=== PATIENT | male | born 1960 | race Hispanic/Latino ===

== ENCOUNTER 2019-01-23 10:30 | Outpatient (CLI) | payer OTHER ==
--- NOTE | 2019-01-23 13:48 | RAD ---
CHEST TWO VIEWS: HISTORY: Former smoker. FINDINGS: Heart size is normal. Lungs are clear. Old granuloma calcification. IMPRESSION: Mild biapical pleural thickening and old granuloma calcification, evidence for mild chronic change. No acute intrathoracic disease. Atherosclerosis of the aorta. POS: [facility]
== END 2019-01-23 10:31 | disposition home or self-care (01) ==
LOC: BICRAD 10:30
PROVIDERS: ATTEND Family Medicine
DX: Z87.891 Personal history of nicotine dependence (principal); I70.0 Atherosclerosis of aorta; D71 Functional disorders of polymorphonuclear neutrophils; J98.4 Other disorders of lung
CPT/HCPCS: 71046

== ENCOUNTER 2020-04-27 12:24 | Outpatient (CLI) | payer OTHER | END 2020-04-27 12:25 | disposition home or self-care (01) | LOC: LAB 12:24 | PROVIDERS: ATTEND Otolaryngology Plastic Surgery within the Head & Neck | DX: R13.10 Dysphagia, unspecified (principal); Z11.59 Encounter for screening for other viral diseases | CPT/HCPCS: 87635; U0003 ==

== ENCOUNTER 2020-04-29 08:53 | Outpatient (CLI) | payer OTHER ==
--- NOTE | 2020-04-29 10:14 | RAD ---
Esophagram air contrast HISTORY: Dysphagia. FINDINGS: Air contrast and single column barium evaluation of the esophagus shows good passage of con trast and a 12 mm barium tablet. Minimal sliding hiatal hernia. Small amount of gastroesophageal reflux. There is diminished primary and secondary peristalsis of the esophagus with mild nonpropulsive tertia ry type contractions. IMPRESSION : No evidence of esophageal mass or obstruction. Very small sliding hiatal hernia. Gastroesophageal reflux. Significant presbyesophagus.
== END 2020-04-29 08:54 | disposition home or self-care (01) ==
LOC: RAD 08:53
PROVIDERS: ATTEND Otolaryngology Plastic Surgery within the Head & Neck
DX: R13.10 Dysphagia, unspecified (principal); K44.9 Diaphragmatic hernia without obstruction or gangrene; K21.9 Gastro-esophageal reflux disease without esophagitis; K22.8 Other specified diseases of esophagus
CPT/HCPCS: 74220